=== PATIENT | male | born 1970 | race African-American/Black ===

== ENCOUNTER 2017-01-08 17:09 | Emergency (ER) | payer OTHER ==
[2017-01-08] MEDS ORDERED: Ibuprofen TAB* 600 MG PO ONE (17:33)
--- NOTE | 2017-01-08 17:45 | UC ---
Upper Extremity HPI - HPI Summary HPI Summary: patient got his left forearm caught in a machine a work, pain in hand, mid forearm and wrist, ROM limited due to pain - History of Current Complaint Chief Complaint: UCUpperExtremity Stated Complaint: LEFT WRIST,SHOULDER,BACK,HAND INJURY WC Time Seen by Provider: 01/08/17 17:30 Hx Obtained From: Patient ?: No Onset/Duration: Sudden Onset, Lasting Minutes - 30 min Severity Initially: Severe Severity Currently: Severe Pain Intensity: 8 Pain Scale Used: 0-10 Numeric Location Of Pain: Is Diffuse - lower left arm Character: Dull, Aching, Throbbing Aggravating Factor(s): Movement Alleviating Factor(s): Nothing - Risk Factors Non-Orthopedic Risk Factor: Negative DVT Risk Factors: Negative - Allergies/Home Medications Allergies/Adverse Reactions: Allergies Allergy/AdvReac Type Severity Reaction Status Date / Time No Known Allergies Allergy Verified 01/08/17 17:21 Home Medications: Home Medications NK [No Home Medications Reported] 01/08/17 [History Confirmed 01/08/17] PMH/Surg Hx/FS Hx/Imm Hx Previously Healthy: Yes - Surgical History Surgical History: None - Family History Known Family History: Positive: Hypertension - Social History Alcohol Use: Rare Substance Use Type: None Smoking Status (MU): Never Smoked Tobacco Review of Systems Constitutional: Negative Skin: Negative, Bruising - mild radium, palm of had red Eyes: Negative ENT: Negative Respiratory: Negative Cardiovascular: Negative Gastrointestinal: Negative Genitourinary: Negative Motor: Negative Neurovascular: Decreased Sensation - in 4th and 5th finger Musculoskeletal: Arthralgia, Decreased ROM, Edema, Myalgia Neurological: Negative Psychological: Negative All Other Systems Reviewed And Are Negative: Yes Physical Exam Triage Information Reviewed: Yes Appearance: Ill-Appearing Vital Signs: Initial Vital Signs Temp 98.7 F 01/08/17 17:14 Pulse 67 01/08/17 17:14 Resp 16 01/08/17 17:14 BP 164/98 01/08/17 17:14 Pulse Ox 100 01/08/17 17:14 Vital Signs Reviewed: Yes Eye Exam: Normal Eyes: Positive: Conjunctiva Clear ENT Exam: Normal ENT: Positive: Normal ENT inspection, Hearing grossly normal, Pharynx normal, TMs normal Dental Exam: Normal Neck exam: Normal Neck: Positive: Supple, Nontender, No Lymphadenopathy Respiratory Exam: Normal Respiratory: Positive: Chest non-tender, Lungs clear, Normal breath sounds Cardiovascular Exam: Normal Cardiovascular: Positive: RRR, No Murmur, Pulses Normal Abdominal Exam: Normal Abdomen Description: Positive: Nontender, No Organomegaly, Soft Bowel Sounds: Positive: Present Musculoskeletal: Positive: Strength Limited @ - in right arm, bruises and indentation noted on mid left forearm. Patient is able to move elbow without difficulty. wrist movement is limited, swelling along metacarpals Neurological Exam: Normal Neurological: Positive: Alert Psychological Exam: Normal Skin Exam: Normal Upper Extremity Course/Dx - Course Course Of Treatment: hx obtained, exam performed xray obtained. ibuprofen given xray neg for fractures. forearm splint placed. Recommend follow up with [facility] on Tuesday for Work clearance. patient still experiencing numbness and tingling in 4th and 5 th fingers. - Differential Dx/Diagnosis Differential Diagnosis/HQI/PQRI: Contusion, Laceration, Strain, Sprain Provider Diagnoses: Forearm contusion. Wrist Sprain Discharge - Discharge Plan Condition: Stable Disposition: HOME Patient Education Materials: Wrist Sprain (ED) Additional Instructions: Rest by using the splint, ice your hand and forearm over the next 48 hours. compress with an broderick wrap to keep swelling down. Keep arm elevated at rest. Follow up with Dr Blackwood office on Tuesday for clearance back to work.
--- NOTE | 2017-01-08 18:03 | RAD ---
INDICATION: Left forearm injury COMPARISON: None TECHNIQUE: AP, lateral, and oblique views were obtained. FINDINGS: The bony structures, joint spaces, and soft tissues are normal for age. IMPRESSION: NO ACUTE FRACTURE
--- NOTE | 2017-01-08 18:27 | RAD ---
INDICATION: Left wrist pain COMPARISON: None TECHNIQUE: AP, lateral, and oblique views were obtained. FINDINGS: The bony structures, joint spaces, and soft tissues are normal for age. IMPRESSION: NEGATIVE EXAMINATION.
[2017-01-08 18:54] VITALS: BP 184/96
== END 2017-01-08 18:56 | disposition home or self-care (01) ==
LOC: UCCORT 17:09 → MERGE 17:09 → UCCORT 18:56
DX: M79.632 Pain in left forearm (principal); M25.532 Pain in left wrist; M79.642 Pain in left hand; R60.1 Generalized edema; S63.592A Other specified sprain of left wrist, initial encounter; S50.12XA Contusion of left forearm, initial encounter; W31.89XA Contact with other specified machinery, initial encounter; Y99.0 Civilian activity done for income or pay
CPT/HCPCS: 99203; A9270-GY; G0463